=== PATIENT | female | born 1945 | race Caucasian/White ===

== ENCOUNTER → 2017-06-09 | Outpatient (CLI) | payer MEDICARE, BC | LOC: MC.RAD 12:53 | DX: Z12.31 Encounter for screening mammogram for malignant neoplasm of breast (principal) ==

== ENCOUNTER → 2018-09-05 | Outpatient (CLI) | payer MEDICARE, BC | LOC: MC.RAD 10:20 | DX: Z12.31 Encounter for screening mammogram for malignant neoplasm of breast (principal) ==

== ENCOUNTER → 2019-10-01 | Outpatient (CLI) | payer MEDICARE, BC | LOC: MC.RAD 10:15 | DX: Z12.31 Encounter for screening mammogram for malignant neoplasm of breast (principal) ==

== ENCOUNTER → 2020-10-02 | Outpatient (CLI) | payer MEDICARE, BC | LOC: MC.RAD 09:47 | DX: Z12.31 Encounter for screening mammogram for malignant neoplasm of breast (principal); M81.0 Age-related osteoporosis without current pathological fracture ==

== ENCOUNTER → 2022-02-02 | Outpatient (CLI) | payer MEDICARE, BC | LOC: MC.RAD 01-04 10:30 | DX: Z12.31 Encounter for screening mammogram for malignant neoplasm of breast (principal) ==

== ENCOUNTER → 2023-02-09 | Outpatient (CLI) | payer MEDICARE, BC | LOC: MC.RAD 10:43 | DX: Z12.31 Encounter for screening mammogram for malignant neoplasm of breast (principal) ==

== ENCOUNTER → 2024-02-13 | Outpatient (CLI) | payer MEDICARE, BC | LOC: MC.RAD 08:51 | DX: Z12.31 Encounter for screening mammogram for malignant neoplasm of breast (principal) ==